=== PATIENT | male | born 1945 ===

== ENCOUNTER 2020-04-09 17:10 | Inpatient (IN) | payer MEDICARE, SELFPAY ==
[2020-04-09] VITALS (9 sets, daily range): BP systolic 93–128; BP diastolic 54–73; PULSE 83–98; RESP 13–22; TEMP 36.2; O2SAT 97–98
--- NOTE | ~2020-04-09 | CT_ITS ---
EXAMINATION: CT brain wo con DATE: 04/09/2020 19:55 INDICATION: Multiple falls TECHNIQUE: Computed tomography (CT) of the head was performed without intravenous contrast. Sagittal and coronal reconstructions were performed. The mA was adjusted according to patient size. Iterative reconstruction technique was employed. The dose-length product was 681.00 mGy-cm. COMPARISON: head CT dated 01/11/2009 and MRI dated 10/21/2009 FINDINGS: No fracture. There are few scattered small old infarcts including the bilateral thalami, right basal ganglia, right frontal lobe, left subinsular white matter, bilateral centrum semiovale, left cerebell ar hemisphere and central angelica. No acute intracranial hemorrhage, acute infarction or abnormal extra axial fluid collection. There is moderate scattered white matter hypoattenuation consistent with musician instrumental delmi small vessel ischemic disease. Symmetric prominence of the sulci consistent with mild age-appropr iate diffuse cerebral volume loss. Ventricles are normal and symmetric. No mass/mass effect. Complet e opacification of the left maxillary sinus and mild mucosal thickening in the right maxillary and bi lateral ethmoid sinuses. Changes of bilateral intraocular lens replacement. Tiny bilateral mastoid ef fusions. Intracranial calcified cerebral atherosclerosis is noted. IMPRESSION: 1. No fracture or acute intracranial process. 2. Multiple small scattered old infarcts as detailed above. 3. Age-related changes including mild diffuse volume loss and moderate scattered white matter hypoatt enuation consistent with chronic small vessel ischemic disease. Reviewed, dictated and finalized at location A. IMPRESSION: 1. No fracture or acute intracranial process. 2. Multiple small scattered old infarcts as detailed above. 3. Age-related changes including mild diffuse volume loss and moderate scattere d white matter hypoattenuation consistent with chronic small vessel ischemic di sease.
[2020-04-09 17:39] LABS: Basophils Absolute Auto 0.1 K/mm3 (0.0-0.1); Basophils Percent Auto 0.6 % (0.2-1.2); Eosinophils Absolute Auto 0.2 K/mm3 (0-0.3); Eosinophils Percent Auto 2.1 % (0-4.4); Hematocrit 36.1 % (42.0-52.0); Immature Granulocyte Absolute 0.03 K/mm3 (0.00-0.031); Immature Granulocyte Percent A 0.3 % (0-0.5); Lymphocytes Percent Auto 10.3 % (18.3-44.2); Mean Corpuscular HGB Conc 33.2 g/dl (32-36); Mean Corpuscular Hemoglobin 26.8 pg (26-34); Mean Corpuscular Volume 80.8 fl (80-100); Mean Platelet Volume 10.5 fl (7.4-10.4); Monocytes Percent Auto 11.8 % (2.6-8.5); Neutrophils Absolute Auto 6.5 K/mm3 (1.3-6.7); Neutrophils Percent Auto 74.9 % (45.5-73.1); Platelet Count Result 300 k/mm3 (150-375); Red Blood Count 4.47 M/mm3 (4.6-6.20); Red Cell Distribution Width 15.6 % (11.5-14.5); White Blood Count 8.7 K/mm3 (4.5-10.0)
[2020-04-09 17:47] LABS: Add Urine Microscopic? YES; Appearance Urine Cloudy (Clear); Bacteria Urine Trace /hpf; Bilirubin Urine Negative (Negative); Blood Urine 2+ (Negative); Color Urine Yellow (Yellow); Glucose Urine UA 1+ mg/dL (Negative); Ketones Urine Trace mg/dL (Negative); Leukocyte Esterase Ur 3+ LEU/UL (Negative); Mucus Urine Rare /lpf; Nitrate Urine Negative (Negative); Protein Urine 1+ mg/dL (Negative); Specific Grav Ur 1.014 (1.001-1.035); Urobilinogen Urine Negative mg/dL (<2.0); WBC Urine >75 /hpf
[2020-04-09 17:52] LABS: Alanine Aminotransferase 98 U/L (4-50); Albumin Level 4.1 g/dL (3.5-5.1); Alkaline Phosphatase 153 U/L (38-126); Anion Gap 7 mmol/L (8-16); Aspartate Amino Transferase 232 U/L (17-59); Bilirubin,Total 0.3 mg/dL (0.2-1.3); Blood Urea Nitrogen 42 mg/dL (9-20); Calcium 9.8 mg/dL (8.4-10.2); Carbon Dioxide 32 mmol/L (22-30); Chloride 96 mmol/L (98-107); Estimated CRCL calculation 59 ml/min; Estimated Glomerular Filt Rate > 60; Glucose 253 mg/dL (75-110); Potassium 4.4 mmol/L (3.4-5.0); Sodium 135 mmol/L (137-145)
--- NOTE | 2020-04-09 19:13 | PC.NURSE ---
report received at this time. pt resting on stretcher with at bedside. pt in NAD, RR even and unlabored, VS stable. pt remains hooked up to monitor; will continue to monitor pt for baseline status changes.
--- NOTE | 2020-04-09 19:20 | ED.WEAKNESS ---
HPI - Weakness General Chief complaint: Weakness Stated complaint: WEAKNESS,MULTIPLE FALLS Time Seen by Provider: 04/09/20 18:02 Source: patient, family and EMS Mode of arrival: EMS Limitations: physical limitation and other (Severe hearing impairment, unable to communicate with him) History of Present Illness HPI Narrative: 74 years old white male came to the ED by ambulance because of multiple falls over the last 2 days with generalized weakness. Patient denies any fever, chills, nausea, vomiting, headache, chest pain or abdominal pain. Patient usually uses a walker and to hold onto things while working at home. Currently patient denying any pain. Related Data Allergies Allergy/AdvReac Type Severity Reaction Status Date / Time morphine Allergy Mild Unknown Verified 04/09/20 17:31 CATS Allergy Severe EYES GET Uncoded 04/09/20 17:31 RED AND SWOLLEN Review of Systems Review of Systems: Narrative: CONSTITUTIONAL: Denies fever, chills, or sweats. EYES: Denies visual changes, redness, or discharge. ENT: Denies rhinorrhea, congestion, sore throat, or otalgia. CARDIOVASCULAR: Denies chest pain, palpitations, or edema. RESPIRATORY: Denies cough or dyspnea. GASTROINTESTINAL: Denies abdominal pain, nausea, vomiting, or diarrhea. GENITOURINARY: Denies dysuria or hematuria. SKIN: Denies rash or itching. MUSCULOSKELETAL: Denies back pain, joint pain, or myalgia. NEUROLOGIC: Denies headache, numbness, patient is complaining that patient had a generalized weakness PSYCHIATRIC: Denies anxiety or depression. [facility] Past Medical History Medical History Diabetes mellitus, new onset Hyperlipidemia TIA (transient ischemic attack) Family History Family History Other Diabetes mellitus Family history of cardiovascular disease Social History Social History Alcohol intake: current Gender identity (if verbalized by the patient): Male Exam Narrative: Exam Narrative: General appearance: Well-developed, malnourished, severe hearing impairment, difficult to understand patient speech, at the bedside able to interpret. Skin: Normal color, multiple bruises mainly forearms Head: Normocephalic, right parietal abrasion, contusion Eyes: Right eye showing thick colored discharge ENT: Oropharynx normal, ears normal, nose normal Neck: Supple, nontender Chest and respiratory: Airway patent, no respiratory distress, no accessory muscle use Heart: Regular rate/rhythm Abdomen: Soft, nontender, no organomegaly, quiet bowel sounds Vascular: Normal peripheral pulses, normal capillary refill. Musculoskeletal: Normal range of motion, nontender back Neurologic: Alert and oriented ?3, FITTER UP is normal as tested, deformity of hands and feet Course Course Emergency Course: Stable Consultations Consultation #1: DR CORDERO Date: 04/09/20 Time: 20:41 Vital Signs Vital signs: Vital Signs Pulse Rate 83 04/09/20 17:18 Respiratory Rate 19 04/09/20 17:18 Blood Pressure 128/73 04/09/20 17:18 Pulse Oximetry 98 04/09/20 17:18 Temperature 36.2 C L 04/09/20 17:21 Pulse Rate 87 04/09/20 19:14 Respiratory Rate 19 04/09/20 19:14 Blood Pressure 116/62 04/09/20 19:14 Pulse Oximetry 97 04/09/20 19:14 MDM - Weakness MDM Narrative Medical decision making narrative: Multiple falls, generalized weakness. My plan to get labs, urine, chest x-ray, CT brain, CPK. Start IV fluid. Further plan to follow My differential diagnosis as below. Blood work-up showed elevated liver enzymes, urinary
[2020-04-09] MEDS: SODIUM CHLORIDE 0.9% IV 1,000 ML 999 ML IV CONT (19:35)
--- NOTE | 2020-04-09 19:43 | PC.NURSE ---
Called lab to add CK
[2020-04-09 20:15] LABS: Creatine Kinase 6902 U/L (55-170)
--- NOTE | 2020-04-09 22:31 | PM.IMHP ---
H&P: HPI History of Present Illness Date/Time: 04/09/20 21:00 Chief complaint: Urinary tract infection,rhabdomyolysis Narrative: Source of information: Most of the information comes from the patient's . The patient himself is extremely hard of hearing and has garbled speech which limits history process. Rashawn Loera is a 74 year old male with a past medical history of hyperlipidemia, type 2 diabetes mellitus, and BPH who presented to the ER via EMS due to weakness and multiple falls. The patient had multiple falls on 04/08/2020 where EMS was called for fall assist. Last time the patient fell was around 6:00 a.m. today. He refused to let his called EMS until around 6:00 p.m.. His notes that since COVID-19 has occurred the patient has been laying in bed and watching TV more than usual. He has been less active And has had decreased appetite over the last 24 hours. the patient himself reports that he had not been feeling any worse than usual. His reports that the patient did complain of some dysuria yesterday. The patient does have episodes of urinary and bowel incontinence infrequently wears a depends. His has not noticed him having any hematuria, hematochezia or melena. The patient's last bowel movement was yesterday. He has not been having any diarrhea or constipation. He denies any abdominal pain. He denies having any loss of consciousness are having struck his head. He has chronic drainage/infection from his right eye that is been unchanged for many years. He denies any vision changes. His speech is course in garbled his states that this is been is speech pattern for over 20 years. He has not been having any cough or congestion. He has no known exposures to COVID-19. He denies any shortness of breath, fevers or chills. Review of Systems Review of Systems: Narrative: 12 systems were reviewed with pertinent positives and negatives per HPI. Except as documented in the HPI, all other systems were reviewed and are negative. However the limited at due to the factors discussed above. [facility] Past Medical History Medical History (Updated 04/09/20 @ 22:37 by Shelia Clifford DO) BPH (benign prostatic hyperplasia) CVA (cerebral vascular accident) patient's CT demonstrates multiple areas of scattered old infarcts Diabetes mellitus, new onset Emphysema of lung GERD (gastroesophageal reflux disease) Hyperlipidemia Surgical History Surgical History (Updated 04/09/20 @ 22:37 by Shelia Clifford DO) History of bilateral hip replacements Status post cataract extraction of both eyes with insertion of intraocular lens Social History Social History (Updated 04/09/20 @ 22:44 by Shelia Clifford DO) Social History: The patient lives in [place] with his . He and his to the been together for approximately 30 years but have been for 12 years. This is currently his 2nd marriage. He smoked up to 3 or 4 packs of cigarettes per day but quit smoking about 10 years ago. He used to drink beer in moderation but has not drink alcohol in many years now. He does not use illicit substances. He is a retired school psychologist. Primary care physician: Dr. Harman Valentine code status: Full code Smoking packs per day: 3 Smoking cigarettes per day: 60.0 Years smoked: 45 Smoking pack-years: 135.00 Smoking status: Former smoker Tobacco type: cigarettes Alcohol intake: former Substance use: never Substance use type: does not use Occupation/Education: retired Additional occupation/education comments: school psychologist Gender identity (if verbalized by the patient): Male Spiritual care concerns: No Meds Home Medications and Allergies Home Medications Medication Instructions Recorded Confirmed Type ascorbic acid (vitamin C) 1,000 mg PO DAILY 04/09/20 04/09/20 History aspirin 81 mg PO DAILY 04/09/20 04/09/20 History atorvastatin 10 mg PO HS 08
--- NOTE | 2020-04-09 23:10 | ADMGEN ---
This patient, Rashawn Loera, was admitted to 2 Medical Room [facility]-01 @ 2310. Patient/family oriented to hospital policies and general routines including ID bracelet, bed and alarms, visiting hours, pain management, procedures, bathroom and other care routines, personal items, smoking policy, room service/diet, and visiting hours. Valuables list has been completed. Information on how to activate the Rapid Response Team has been discussed. Patient/Family are encouraged to report perceived risks to care and to ask questions if they do not understand what they are told or what they should do.
[2020-04-09] MEDS: SODIUM CHLORIDE 0.9% IV 1,000 ML 150 ML IV CONT (23:22)
[2020-04-10] VITALS (7 sets, daily range): BP systolic 103–124; BP diastolic 42–73; PULSE 72–102; RESP 18–22; TEMP 36.2–36.6; O2SAT 96–100; BMI 18.8
[2020-04-10 00:58] LABS: Creatine Kinase 4320 U/L (55-170)
[2020-04-10 05:28] LABS: Basophils Absolute Auto 0.1 K/mm3 (0.0-0.1); Basophils Percent Auto 0.8 % (0.2-1.2); Eosinophils Absolute Auto 0.3 K/mm3 (0-0.3); Eosinophils Percent Auto 5.1 % (0-4.4); Hematocrit 29.9 % (42.0-52.0); Hemoglobin 9.8 g/dL (14.0-18.0); Immature Granulocyte Absolute 0.03 K/mm3 (0.00-0.031); Immature Granulocyte Percent A 0.5 % (0-0.5); Lymphocytes Absolute Auto 1.03 K/mm3 (0.9-3.2); Lymphocytes Percent Auto 17.1 % (18.3-44.2); Mean Corpuscular HGB Conc 32.8 g/dl (32-36); Mean Corpuscular Hemoglobin 26.6 pg (26-34); Mean Platelet Volume 10.2 fl (7.4-10.4); Monocytes Absolute Auto 0.7 K/mm3 (0.1-0.6); Monocytes Percent Auto 12.3 % (2.6-8.5); Neutrophils Absolute Auto 3.9 K/mm3 (1.3-6.7); Neutrophils Percent Auto 64.2 % (45.5-73.1); Platelet Count Result 236 k/mm3 (150-375); Red Blood Count 3.69 M/mm3 (4.6-6.20); Red Cell Distribution Width 15.6 % (11.5-14.5)
[2020-04-10 05:46] LABS: Alanine Aminotransferase 70 U/L (4-50); Albumin Level 3.1 g/dL (3.5-5.1); Alkaline Phosphatase 110 U/L (38-126); Anion Gap 6 mmol/L (8-16); Aspartate Amino Transferase 136 U/L (17-59); Bilirubin,Total 0.3 mg/dL (0.2-1.3); Blood Urea Nitrogen 32 mg/dL (9-20); Calcium 8.6 mg/dL (8.4-10.2); Carbon Dioxide 30 mmol/L (22-30); Chloride 101 mmol/L (98-107); Estimated CRCL calculation 59 ml/min; Estimated Glomerular Filt Rate > 60; Glucose 115 mg/dL (75-110); Potassium 3.1 mmol/L (3.4-5.0); Sodium 137 mmol/L (137-145)
[2020-04-10 06:23] LABS: Hepatitis B Surface Antigen Negative (Negative)
[2020-04-10 06:29] LABS: Creatine Kinase 2976 U/L (55-170); HAV RESULT Negative (Negative); Hepatitis B Core IgM Result Negative (Negative)
[2020-04-10 06:41] LABS: Hepatitis C Virus Antibody Negative (Negative)
[2020-04-10] MEDS: SODIUM CHLORIDE 0.9% IV 1,000 ML 150 ML IV CONT ×3 (07:13→20:53)
[2020-04-10] MEDS: WATER FOR IRRIGATION, STERILE 1,000 ML BOTTLE 1000 ML (07:14)
[2020-04-10 07:45] LABS: Glucose Point of Care 99 (65-105)
[2020-04-10] MEDS: metFORMIN HCL XR 500 MG TAB.SR.24H 1000 MG PO ×2 (08:56→17:20)
[2020-04-10] MEDS: PANTOPRAZOLE 40 MG TABLET PO (08:56)
[2020-04-10] MEDS: POTASSIUM CHLORIDE 10 MEQ TABLET.ER PO (08:56)
[2020-04-10] MEDS: FOLIC ACID 1 MG TABLET PO (08:56)
[2020-04-10] MEDS: ASPIRIN 81 MG CHEWABLE TABLET PO (08:56)
--- NOTE | 2020-04-10 09:50 | PM.IMPN ---
Progress Note: A&P Assessment and Plan (1) Rhabdomyolysis: Qualifiers: Encounter type: subsequent encounter Rhabdomyolysis type: traumatic Qualified Code(s): T79.6XXD - Traumatic ischemia of muscle, subsequent encounter Code(s): M62.82 - Rhabdomyolysis Status: Acute Assessment and Plan: Secondary to a fall. Unknown how long patient was down. CK at presentation was 6902. Declined today to 2976. Continue IV fluid hydration with normal saline at 150 mL an hour. Continue to trend CK Monitor urine output. (2) Urinary tract infection: Qualifiers: Hematuria presence: without hematuria Urinary tract infection type: site unspecified Qualified Code(s): N39.0 - Urinary tract infection, site not specified Code(s): N39.0 - Urinary tract infection, site not specified Status: Acute Assessment and Plan: UA is suspicious for urinary tract infection given the setting of the patient's recent development of dysuria. Urine culture is pending. Await results Continue IV Rocepin. Started on 04/09. (3) Multiple falls: Code(s): R29.6 - Repeated falls Status: Acute Assessment and Plan: Patient fell on 04/09. Unclear mechanism of injury. Head CT was negative for acute intracranial process. Multiple recent falls, especially over the last 2 days. Possibly secondary to acute UTI but more likely due to physical deconditioning. Fall precautions PT and OT consult and recommendations appreciated (4) Elevated liver enzymes: Code(s): R74.8 - Abnormal levels of other serum enzymes Status: Acute Assessment and Plan: Elevated but displaying improvement. Most likely due to rhabdomyolysis. Hepatits panel is negative. Trend LFTs Consider RUQ US if no improvement (5) Diabetes mellitus, new onset: Code(s): E11.9 - Type 2 diabetes mellitus without complications Status: Acute Assessment and Plan: Medical history indicates recent onset of DM. Patient unable to provider further information. Blood sugars have been reviewed. Check A1c Continue acucchecks achs, SSI, and hypoglycemic protocol. (6) Hypokalemia: Code(s): E87.6 - Hypokalemia Status: Acute Assessment and Plan: Potassium mildly low today at 3.1 Replace potassium and continue to monitor levels closely. Continue with patients home 10 mEq potassium daily. Subjective Date/time seen: 04/10/20 09:50 Interval history: Date of service: 04/10/2020 Patient is a 74 year old male with hx of CVA, BPH, and GERD who is being treated for rhabdomyolysis secondary to a fall. The patient is very hard of hearing so he is asked limited questions. He denies any acute pain. He is feeling well. He complains of feeling weak. He is able to tell me he had a fall. Without prompting, he starts off our conversation by telling me he does not know the year or the month. He then tells me he is at [facility]. He is able to correctly tell me his name and . He follows all commands. He is eating breakfast and he reports good appetite. He denies nausea or vomiting. He denies dyspnea or cough. He denies headache. He denies feeling dizzy or lightheaded but reiterates his weakness several times. Review of Systems Review of Systems: Narrative: A 12 point review of systems was reviewed with pertinent positives and negatives as per HPI. Limited due to patients mental status and difficulty hearing. Exam Narrative: Exam Narrative: Mr. Loera is a thin, frail 74 year old male who is sitting up in a chair eating breakfast. He appears comfortable and is in NARD. HR 88, BP 108/73, RR 18, T 97.5, 96% on room air Neuro: awake, alert and oriented to self and events of hospitalization, speech garbled, no focal neuro deficits noted HEENMT: normocephalic, atraumatic, EOMI, sclerae anicteric, moist oral mucosa, tongue normal Neck: supple, no lymphadenopathy
[2020-04-10 11:43] LABS: Glucose Point of Care 254 (65-105)
[2020-04-10] MEDS: INSULIN ASPART (*BKC) 100 UNITS/ML SUB-Q (11:44)
[2020-04-10] MEDS: POTASSIUM CHLORIDE 20 MEQ TABLET 40 MEQ PO (13:13)
[2020-04-10 16:39] LABS: Glucose Point of Care 114 (65-105)
[2020-04-10] MEDS: TAMSULOSIN HCL 0.4 MG CAPSULE PO (20:53)
[2020-04-10] MEDS: MONTELUKAST SODIUM 10 MG TABLET PO (20:53)
[2020-04-10 22:13] LABS: Glucose Point of Care 224 (65-105)
[2020-04-11 04:00] VITALS: BP 102/48; PULSE 80; RESP 20; TEMP 37.2; O2SAT 97
[2020-04-11] MEDS: SODIUM CHLORIDE 0.9% IV 1,000 ML 150 ML IV CONT ×2 (05:16→11:09)
[2020-04-11 06:03] LABS: Hematocrit 28.1 % (42.0-52.0); Mean Corpuscular Hemoglobin 26.8 pg (26-34); Mean Corpuscular Volume 83.6 fl (80-100); Mean Platelet Volume 10.9 fl (7.4-10.4); Platelet Count Result 225 k/mm3 (150-375); Red Blood Count 3.36 M/mm3 (4.6-6.20); White Blood Count 5.2 K/mm3 (4.5-10.0)
[2020-04-11 06:13] LABS: Alanine Aminotransferase 58 U/L (4-50); Albumin Level 2.7 g/dL (3.5-5.1); Alkaline Phosphatase 89 U/L (38-126); Anion Gap 2 mmol/L (8-16); Aspartate Amino Transferase 76 U/L (17-59); Bilirubin,Total 0.1 mg/dL (0.2-1.3); Blood Urea Nitrogen 23 mg/dL (9-20); Calcium 7.9 mg/dL (8.4-10.2); Carbon Dioxide 28 mmol/L (22-30); Chloride 106 mmol/L (98-107); Creatine Kinase 893 U/L (55-170); Estimated CRCL calculation 76 ml/min; Estimated Glomerular Filt Rate > 60; Glucose 97 mg/dL (75-110); Potassium 3.9 mmol/L (3.4-5.0); Sodium 136 mmol/L (137-145)
[2020-04-11 06:57] LABS: Hemoglobin A1C 7.5 % (<5.7)
[2020-04-11] MEDS: POTASSIUM CHLORIDE 10 MEQ TABLET.ER PO (08:01)
[2020-04-11] MEDS: PANTOPRAZOLE 40 MG TABLET PO (08:01)
[2020-04-11] MEDS: ASPIRIN 81 MG CHEWABLE TABLET PO (08:01)
[2020-04-11] MEDS: FOLIC ACID 1 MG TABLET PO (08:01)
[2020-04-11] MEDS: metFORMIN HCL XR 500 MG TAB.SR.24H 1000 MG PO ×2 (08:01→16:57)
[2020-04-11 08:10] LABS: Glucose Point of Care 91 (65-105)
[2020-04-11 11:22] LABS: Glucose Point of Care 121 (65-105)
[2020-04-11 11:46] LABS: Iron 51 ug/dL (49-181)
[2020-04-11 11:56] LABS: Percent Iron Saturation 17 % (20-50)
--- NOTE | 2020-04-11 12:22 | PM.IMPN ---
Progress Note: A&P Assessment and Plan (1) Rhabdomyolysis: Qualifiers: Encounter type: subsequent encounter Rhabdomyolysis type: traumatic Qualified Code(s): T79.6XXD - Traumatic ischemia of muscle, subsequent encounter Code(s): M62.82 - Rhabdomyolysis Status: Acute Assessment and Plan: Secondary to a fall. Unknown how long patient was down. CK at presentation was 6902. Declined today to 893. Urine output has been excellent. Continue IV fluid hydration at decreased rate of 75 ml/hr Continue to trend CK (2) Urinary tract infection: Qualifiers: Hematuria presence: without hematuria Urinary tract infection type: site unspecified Qualified Code(s): N39.0 - Urinary tract infection, site not specified Code(s): N39.0 - Urinary tract infection, site not specified Status: Acute Assessment and Plan: UA is suspicious for urinary tract infection given the setting of the patient's recent development of dysuria which was noted on admission. Patient has no signs or symptoms to suggest infection Urine culture is negative. Discontinue Faye catheter. Disontinue IV Rocepin. Patient received 2 doses. (3) Multiple falls: Code(s): R29.6 - Repeated falls Status: Acute Assessment and Plan: Patient fell on 04/09. Unclear mechanism of injury. Head CT was negative for acute intracranial process. Multiple recent falls, likely due to physical deconditioning. Fall precautions PT and OT consult and recommendations appreciated. SNF has been recommended and care coordination is following. (4) Elevated liver enzymes: Code(s): R74.8 - Abnormal levels of other serum enzymes Status: Acute Assessment and Plan: Remain elevated, however with significant improvement. Most likely due to rhabdomyolysis. Hepatits panel is negative. Trend LFTs Consider RUQ US if no improvement (5) Diabetes mellitus, new onset: Code(s): E11.9 - Type 2 diabetes mellitus without complications Status: Acute Assessment and Plan: Medical history indicates recent onset of DM. Patient unable to provider further information. A1c is 7.5. Blood sugars have been reviewed And are stable. Acucchecks achs, SSI, and hypoglycemic protocol. Resume glimepiride and metformin (6) Normocytic anemia: Code(s): D64.9 - Anemia, unspecified Status: Acute Assessment and Plan: Upon chart review, appears to be chronic. Patient did have declined by 2 points since admission, which is likely dilutional given aggressive IV fluid rehydration. Iron panel performed with adequate iron stores but very mildly decreased iron saturation. Monitor H&H and transfuse as needed (7) Hypokalemia: Code(s): E87.6 - Hypokalemia Status: Acute Assessment and Plan: Potassium mildly low yesterday at 3.1 and was replaced. Stable at 3.9 today. Continue with patients home 10 mEq potassium daily. monitor potassium and supplement as needed. Subjective Date/time seen: 04/11/20 12:22 Interval history: Date of service: 04/10/2020 Patient is a 74 year old male with hx of CVA, BPH, and GERD who is being treated for rhabdomyolysis secondary to a fall. The patient is very hard of hearing so he is asked limited questions. He reports that he is feeling well today. His appetite has been good. He was sitting up in eating a cheeseburger. He does complain of some pain on his buttocks related to sitting in the chair. Other than that, he has no complaints. He denies abdominal pain, nausea, vomiting, fever, or chills. He denies back pain. He still feels weak. He denies dizziness or lightheadedness. No shortness of breath or cough. He has a Faye catheter that is patent and draining. He is unable to tell me whether he has had a bowel movement or not. He slept well last night. Review of Systems Review of Systems: Na
[2020-04-11 14:25] VITALS: BP 124/58; PULSE 69; RESP 17; TEMP 36.4; O2SAT 100
[2020-04-11 16:49] LABS: Glucose Point of Care 146 (65-105)
[2020-04-11] MEDS: SODIUM CHLORIDE 0.9% IV 1,000 ML 75 ML IV CONT (21:24)
[2020-04-11] MEDS: TAMSULOSIN HCL 0.4 MG CAPSULE PO (21:26)
[2020-04-11] MEDS: MONTELUKAST SODIUM 10 MG TABLET PO (21:26)
[2020-04-11 21:53] VITALS: BP 129/62; PULSE 86; RESP 20; TEMP 36.7; O2SAT 98
[2020-04-12 01:24] LABS: Glucose Point of Care 215 (65-105)
[2020-04-12 01:24] LABS: Glucose Point of Care 143 (65-105)
[2020-04-12 05:45] LABS: Hematocrit 30.9 % (42.0-52.0); Hemoglobin 9.8 g/dL (14.0-18.0); Mean Corpuscular HGB Conc 31.7 g/dl (32-36); Mean Corpuscular Hemoglobin 26.5 pg (26-34); Mean Corpuscular Volume 83.5 fl (80-100); Mean Platelet Volume 10.4 fl (7.4-10.4); Platelet Count Result 244 k/mm3 (150-375); Red Cell Distribution Width 15.7 % (11.5-14.5); White Blood Count 5.5 K/mm3 (4.5-10.0)
[2020-04-12 06:00] VITALS: BP 123/60; PULSE 72; RESP 20; TEMP 36.4; O2SAT 96
[2020-04-12 06:04] LABS: Alanine Aminotransferase 55 U/L (4-50); Albumin Level 2.8 g/dL (3.5-5.1); Alkaline Phosphatase 99 U/L (38-126); Anion Gap 3 mmol/L (8-16); Aspartate Amino Transferase 61 U/L (17-59); Bilirubin,Total 0.1 mg/dL (0.2-1.3); Blood Urea Nitrogen 15 mg/dL (9-20); Calcium 8.1 mg/dL (8.4-10.2); Carbon Dioxide 27 mmol/L (22-30); Chloride 104 mmol/L (98-107); Creatine Kinase 487 U/L (55-170); Estimated CRCL calculation 76 ml/min; Estimated Glomerular Filt Rate > 60; Glucose 107 mg/dL (75-110); Potassium 3.7 mmol/L (3.4-5.0); Sodium 134 mmol/L (137-145)
[2020-04-12 06:55] LABS: Glucose Point of Care 108 (65-105)
[2020-04-12] MEDS: metFORMIN HCL XR 500 MG TAB.SR.24H 1000 MG PO ×2 (09:26→17:59)
[2020-04-12] MEDS: PANTOPRAZOLE 40 MG TABLET PO (09:26)
[2020-04-12] MEDS: FOLIC ACID 1 MG TABLET PO (09:26)
[2020-04-12] MEDS: GLIMEPIRIDE 2 MG TABLET PO (09:26)
[2020-04-12] MEDS: POTASSIUM CHLORIDE 10 MEQ TABLET.ER PO (09:26)
[2020-04-12] MEDS: ASPIRIN 81 MG CHEWABLE TABLET PO (09:27)
[2020-04-12] MEDS: SODIUM CHLORIDE 0.9% IV 1,000 ML 75 ML IV CONT (10:40)
[2020-04-12 10:47] VITALS: BMI 18.8
--- NOTE | 2020-04-12 11:37 | PCNSR ---
On 04/12/20, the student, Cory Burton, provided care and completed [facility] documentation on this patient. I have reviewed the student's documentation and agree with the findings.
[2020-04-12 12:02] LABS: Glucose Point of Care 178 (65-105)
[2020-04-12 12:40] LABS: SARS-CoV-2 RNA PCR Negative
--- NOTE | 2020-04-12 13:25 | PCOTNOTE ---
Attempted OT treatment, but unable to complete as patient with social media editor. Will attempt again later.
[2020-04-12 13:57] VITALS: BP 112/50; PULSE 84; RESP 14; TEMP 36.7; O2SAT 99
--- NOTE | 2020-04-12 14:15 | PCOTNOTE ---
Attempted OT treatment, but unable to complete as patient with surgical brace maker. Will attempt again later.
--- NOTE | 2020-04-12 15:10 | PCOTNOTE ---
Attempted to see Patient for OT treatment session at this time. Patient unavailable to be seen at this time, in with Care Coordination.
--- NOTE | 2020-04-12 16:13 | PM.DS ---
DS: Admitting Diagnosis Admitting Diagnosis Admitting Diagnosis: Urinary tract infection,rhabdomyolysis DS: Discharge Diagnosis Discharge Diagnosis (1) Rhabdomyolysis: Qualifiers: Encounter type: subsequent encounter Rhabdomyolysis type: traumatic Qualified Code(s): T79.6XXD - Traumatic ischemia of muscle, subsequent encounter Code(s): M62.82 - Rhabdomyolysis Status: Acute Assessment and Plan: Secondary to a fall. Unknown how long patient was down. CK at presentation was 6902 and declined to 487 with IV fluid rehydration. Urine output was good. Renal function was within normal limits. (2) Urinary tract infection: Qualifiers: Hematuria presence: without hematuria Urinary tract infection type: site unspecified Qualified Code(s): N39.0 - Urinary tract infection, site not specified Code(s): N39.0 - Urinary tract infection, site not specified Status: Acute Assessment and Plan: UA was suspicious for urinary tract infection, however urine culture was negative. He received 2 doses of IV Rocephin and was discontinued after negative culture because patient was asymptomatic. He was noted to have complained of dysuria, but on further evaluation the patient denied any urinary symptoms. He had no signs or symptoms to suggest active infection. Faye catheter was discontinued and he was able to void. (3) Multiple falls: Code(s): R29.6 - Repeated falls Status: Acute Assessment and Plan: Patient fell on 04/09. Unclear mechanism of injury but patient does not believe he hit his head. Head CT was negative for acute intracranial process. Multiple recent falls, likely due to physical deconditioning. He was evaluated by PT and OT and SNF was recommended. He will continue therapy at [facility]. (4) Elevated liver enzymes: Code(s): R74.8 - Abnormal levels of other serum enzymes Status: Acute Assessment and Plan: [place] to be secondary to rhabdomyolysis. Levels improved to near normal limits. Statin was initially held but resumed upon discharge given improvement in LFTs. Hepatitis panel was negative. (5) Diabetes mellitus, new onset: Code(s): E11.9 - Type 2 diabetes mellitus without complications Status: Acute Assessment and Plan: Medical history indicates recent onset of DM. Patient unable to provider further information. A1c was 7.5. Blood sugars Or reviewed and remained stable. Continue glimepiride and metformin. Recommend monitoring blood sugars at SNF tid. (6) Normocytic anemia: Code(s): D64.9 - Anemia, unspecified Status: Acute Assessment and Plan: Upon chart review, appears to be chronic. Hemoglobin declined from 12.0 to 9.0 in 2 days, however this was felt to be more likely dilutional given aggressive IV fluid rehydration. H&H remained stable. Vitals were stable with no signs of active bleeding. Iron panel performed with adequate iron stores and very mildly decreased iron saturation. (7) Hypokalemia: Code(s): E87.6 - Hypokalemia Status: Acute Assessment and Plan: Potassium was mildly low and replaced. Potassium levels stabilized and remained within normal limits on patient's home 10 mEq potassium daily. DS: Summary Hospital Course Reason for hospitalization: Weakness, falls Hospital Course: Date of admission: 04/09/2020 Date of discharge: 04/12/2020 Rashawn Loera is a 74-year-old male with a history of CVA, BPH, HLD, and diabetes mellitus who presented to the emergency department on 04/09/2020 after having a fall. He had been having multiple falls at home, especially over the past 2 days, despite using a walker at home. At presentation, vital signs stable, sodium 135, glucose 253, AST 232, ALT 98, ALP 153, CK 6902, UA with 3+ leuk esterase, negative nitrates, and wbc's, and head CT was no acute intracranial process with evidence of multiple old infarcts
--- NOTE | 2020-04-12 17:10 | PC.NURSE ---
Called report to nurse Rodriguez at [facility]. All questions and concerns answered at this time.
== END 2020-04-12 19:40 | DRG 690 ==
LOC: ANHED 20:51 → ANH2MED 04-10 06:24
PROVIDERS: Admitting Provider Internal Medicine; Emergency Provider Emergency Medicine; PCP Internal Medicine; Visit Provider Physician Assistant
DX: N39.0 Urinary tract infection, site not specified (principal); M62.82 Rhabdomyolysis; E11.9 Type 2 diabetes mellitus without complications; E78.5 Hyperlipidemia, unspecified; Z86.73 Personal history of transient ischemic attack (TIA), and cerebral infarction without residual deficits; E87.6 Hypokalemia; R29.6 Repeated falls; Z03.818 Encounter for observation for suspected exposure to other biological agents ruled out
CPT/HCPCS: 36415; 51701; 70450; 80053; 80074; 81001; 82550; 82728; 83036; 83540; 83550; 84443; 85025; 85027; 87086; 87635; 96361; 96365; 97110; 97162; 97165; 97530; 99285; A9270; C9803; J0696; J1815; J7030; U0003